=== PATIENT | male | born 1985 | race Caucasian/White ===

== ENCOUNTER 2016-10-14 16:08 | Emergency (ER) | payer SELFPAY ==
[~2016-10-14] VITALS: Ht 188 cm; Wt 117.4 kg
[~2016-10-14 16:08] MED LIST: NO HOME MEDS
[2016-10-14 17:36] LABS: HEMATOCRIT 44.5 % (38.0-50.0); MCH 32.6 PG (29.0-34.0); MCHC 35.7 G/DL (30.0-36.0); MCV 91.2 FL (86-99); MEAN PLAT.VOLUME 11.1 uM^3 (9.0-12.4); PLATELET COUNT 175 K/uL (156-360); RBC DIS.WIDTH-CV 12.9 % (11.8-14.6); RBC DIS.WIDTH-SD 42.8 % (39-53); RED BLOOD COUNT 4.88 M/uL (4.00-5.50); WHITE BLOOD COUNT 7.4 K/uL (4.1-10.2)
[2016-10-14 18:11] LABS: CHLORIDE 104 mEq/L (99-109); POTASSIUM 4.5 mEq/L (3.7-5.4); SODIUM 138 mEq/L (136-147)
[2016-10-14 18:13] LABS: GLUCOSE 97 mg/dL (70-99)
[2016-10-14 18:14] LABS: ANION GAP 11 MEQ/L (2-14)
[2016-10-14 18:15] LABS: TOTAL BILIRUBIN 0.4 mg/dL (0.0-1.0)
[2016-10-14 18:17] LABS: ALKALINE PHOSPHATASE 106 IU/L (3-129); GFR ESTIMATE (CALCULATED) > 59 mL/min/
[2016-10-14 18:18] LABS: UREA NITROGEN (BUN) 19 mg/dL (9-23)
[2016-10-14 18:20] LABS: LIPASE 36 U/L (1.0-51.0)
[2016-10-14 20:03] LABS: ADD MIUA? NO; BILIRUBIN NEGATIVE; BLOOD NEGATIVE; COLOR YELLOW ((YELLOW)); GLUCOSE (STRIP) NEGATIVE; KETONES NEGATIVE; LEUKOCYTES NEGATIVE; NITRITE NEGATIVE; PROTEIN (STRIP) NEGATIVE
[2016-10-14] MEDS ORDERED: PERCOCET 5/31 TABLET PO (20:09)
[2016-10-14 20:46] VITALS: BP 117/64
== END 2016-10-14 20:49 | disposition home or self-care (01) ==
LOC: EME 16:08 → TRA 16:08
PROVIDERS: Nurse Practitioner Family
DX: S39.92XA Unspecified injury of lower back, initial encounter (principal); S20.229A Contusion of unspecified back wall of thorax, initial encounter; S30.1XXA Contusion of abdominal wall, initial encounter; S09.90XA Unspecified injury of head, initial encounter; Y93.K9 Activity, other involving animal care; W55.29XA Other contact with cow, initial encounter; I10 Essential (primary) hypertension; F17.200 Nicotine dependence, unspecified, uncomplicated
CPT/HCPCS: 70450; 71260; 72125; 72129; 72132; 74177; 80053; 81003; 83690; 85027; 99281; 99285; J2270; J2405; J3010; J7030